=== PATIENT | male | born 1950 | race Caucasian/White ===

== ENCOUNTER 2022-03-16 11:14 | Inpatient (IN) | payer MEDICAID, OTHER ==
[~2022-03-16] VITALS: Ht 165.1 cm; Wt 54.4 kg
[2022-03-16] MEDS: MORPHINE SULFATE 2 MG/ML CPJ (NOT FOR IM USE) IV ONE (11:45)
[2022-03-16 12:08] LABS: MEAN CORPUSCULAR HEMOGLOBIN 31.6 pg (28.0-32.0); MEAN PLATELET VOLUME 8.7 fl (7.4-10.4); PLATELET 296 x1000/uL (130-400); RED BLOOD CELL COUNT 1.98 mill/uL (4.7-6.1); RED CELL DISTRIBUTION WIDTH 32.9 % (11.6-14.6)
[2022-03-16 12:18] LABS: CHLORIDE 102 mEq/L (98-107); HEMATOCRIT. 18.6 % (42.0-52.0); HEMOGLOBIN. 6.3 g/dL (14.0-18.0)
[2022-03-16 12:22] LABS: INR 1.6; PROTHROMBIN TIME 16.3 sec (9.6-11.0)
[2022-03-16 12:29] LABS: ETHANOL BLOOD < 10 mg/dL
[2022-03-16 12:54] LABS: PLATELET ESTIMATE NORMAL
[2022-03-16] MEDS ORDERED: ALBUTEROL (0.083%) 2.5MG/3ML NEB HHN PRN (16:00)
[2022-03-16] MEDS ORDERED: IPRATROPIUM BROMIDE (0.02%) 0.5MG/2.5ML NEB HHN PRN (16:00)
[2022-03-16] MEDS ORDERED: ONDANSETRON HCL 4MG/2ML INJ IV PRN (16:00)
[2022-03-16] MEDS ORDERED: LORAZEPAM 0.5MG TABLET PO PRN (16:00)
[2022-03-16] MEDS ORDERED: NALOXONE HCL 0.4MG/ML VIAL IV PRN (16:00)
[2022-03-16] MEDS ORDERED: DOCUSATE SODIUM 100MG CAPSULE PO PRN (16:00)
[2022-03-16] MEDS ORDERED: HYDROCODONE/ACETAMINOPHEN 5/325MG TABLET PO PRN (16:00)
[2022-03-16] MEDS ORDERED: ACETAMINOPHEN 325MG TABLET PO PRN ×2 (16:00)
[2022-03-16] MEDS ORDERED: CLONIDINE 0.1MG TABLET PO PRN (16:00)
[2022-03-16] MEDS ORDERED: IPRATROPIUM/ALBUTEROL 0.5-3(2.5)MG/3ML NEB HHN PRN (16:00)
[2022-03-16] MEDS ORDERED: MORPHINE SULFATE 2 MG/ML CPJ (NOT FOR IM USE) IV PRN (16:00)
[2022-03-16 16:04] VITALS: BP 115/68
== END 2022-03-16 17:30 | disposition left against medical advice (07) | DRG 663 ==
LOC: ER 11:14 → 7EST 13:46 → ENRESERV 14:55 → 7EST 15:58
PROVIDERS: ADMIT Internal Medicine; ATTEND Internal Medicine
DX: D64.9 Anemia, unspecified (principal); E78.00 Pure hypercholesterolemia, unspecified; R07.89 Other chest pain; I10 Essential (primary) hypertension; I45.10 Unspecified right bundle-branch block; Z53.29 Procedure and treatment not carried out because of patient's decision for other reasons; Z85.038 Personal history of other malignant neoplasm of large intestine; Z85.05 Personal history of malignant neoplasm of liver; Z79.82 Long term (current) use of aspirin; W18.30XA Fall on same level, unspecified, initial encounter; Y93.89 Activity, other specified; Y92.89 Other specified places as the place of occurrence of the external cause; Y99.9 Unspecified external cause status
CPT/HCPCS: 36415; 71045; 80053; 80320; 84484; 85025; 86850; 86900; 86920; 93005; 99291; J2270; G0480

== ENCOUNTER 2022-04-12 09:40 | Inpatient (IN) | payer OTHER ==
[~2022-04-12] VITALS: Ht 165.1 cm; Wt 68.1 kg
[2022-04-12] MEDS ORDERED: MORPHINE SULFATE 4 MG/ML CPJ (NOT FOR IM USE) IV STA (10:11)
[2022-04-12] MEDS ORDERED: ONDANSETRON HCL 4MG/2ML INJ IV STA (10:11)
[2022-04-12] MEDS ORDERED: FAMOTIDINE 20MG/2ML VIAL IV STA (10:11)
[2022-04-12 11:18] LABS: HEMATOCRIT. 23.3 % (42.0-52.0); HEMOGLOBIN. 7.4 g/dL (14.0-18.0); MEAN CORPUSCULAR HEMOGLOBIN 28.8 pg (28.0-32.0); MEAN CORPUSCULAR VOLUME 90.5 fL (80.0-94.0); PLATELET 382 x1000/uL (130-400); RED BLOOD CELL COUNT 2.58 mill/uL (4.7-6.1); RED CELL DISTRIBUTION WIDTH 23.9 % (11.6-14.6)
[2022-04-12 11:41] LABS: PROTHROMBIN TIME 62.4 sec (9.6-11.0)
[2022-04-12 11:46] LABS: CHLORIDE 100 mEq/L (98-107)
[2022-04-12 12:02] LABS: INR 6.5
[2022-04-12 12:27] LABS: NUCLEATED RED BLOOD CELLS 1 /100 WBC; PLATELET ESTIMATE NORMAL
[2022-04-12] MEDS ORDERED: FAMOTIDINE 20MG/2ML VIAL IV NR (13:15)
[2022-04-12] MEDS ORDERED: ONDANSETRON HCL 4MG/2ML INJ IV NR (13:15)
[2022-04-12] MEDS ORDERED: MORPHINE SULFATE 4 MG/ML CPJ (NOT FOR IM USE) IV NR (13:15)
[2022-04-12 19:20] VITALS: BP 103/52
[2022-04-12 20:00] VITALS: BP 93/60
[2022-04-12] MEDS ORDERED: HYDROCODONE/ACETAMINOPHEN 10/325MG TABLET PO PRN (23:15)
[2022-04-12] MEDS ORDERED: ONDANSETRON HCL 4MG/2ML INJ IV PRN (23:15)
[2022-04-12] MEDS ORDERED: NALOXONE HCL 0.4MG/ML VIAL IV PRN (23:45)
[2022-04-13] VITALS (27 sets, daily range): BP systolic 90–109; BP diastolic 53–72
[2022-04-13 06:41] LABS: MEAN CORPUSCULAR HEMOGLOBIN 29.2 pg (28.0-32.0); MEAN CORPUSCULAR VOLUME 91.2 fL (80.0-94.0); PLATELET 265 x1000/uL (130-400); RED BLOOD CELL COUNT 2.02 mill/uL (4.7-6.1); RED CELL DISTRIBUTION WIDTH 24.3 % (11.6-14.6)
[2022-04-13 07:05] LABS: HEMATOCRIT. 18.4 % (42.0-52.0); HEMOGLOBIN. 5.9 g/dL (14.0-18.0)
[2022-04-13 07:37] LABS: CHLORIDE 101 mEq/L (98-107)
[2022-04-13] MEDS ORDERED: PANTOPRAZOLE 40MG DR TABLET PO SCH (09:00)
[2022-04-13] MEDS ORDERED: MORPHINE SULFATE 2 MG/ML CPJ (NOT FOR IM USE) IV PRN (10:30)
[2022-04-13 11:56] LABS: CLARITY URINE CLOUDY (CLEAR); COLOR URINE DARK YELLOW (YELLOW); KETONES URINE NEGATIVE (NEGATIVE); LEUKOCYTE ESTERASE URINE 1+ (NEGATIVE); NITRITE URINE POSITIVE (NEGATIVE); OCCULT BLOOD URINE NEGATIVE (NEGATIVE); PROTEIN URINE TRACE (NEGATIVE); UROBILINOGEN URINE 0.2 E.U./dL (0.2-1.0)
[2022-04-13] MEDS: PHYTONADIONE 10MG/ML AMP SUBCUT SCH (12:32)
[2022-04-13] MEDS: OCTREOTIDE 1,000 MCG in SODIUM CHLORIDE 0.9% 98 ML IV SCH (14:40)
[2022-04-13 20:06] LABS: PLATELET ESTIMATE NORMAL
[2022-04-13 20:33] LABS: FERRITIN 99 ng/mL (22-322)
[2022-04-13 20:44] LABS: VITAMIN B12 SERUM >2000 pg/mL pg/mL (211-911)
[2022-04-13] MEDS: PANTOPRAZOLE SODIUM 40 MG/VIAL IV SCH (20:54)
[2022-04-13] MEDS ORDERED: PIPERACILLIN/TAZOBACTAM 3.375 G in DEXTROSE 5% WATER 50 ML IV SCH (22:00)
[2022-04-14] VITALS (11 sets, daily range): BP systolic 92–117; BP diastolic 53–75
[2022-04-14 05:37] LABS: HEMATOCRIT. 24.2 % (42.0-52.0); MEAN CORPUSCULAR HEMOGLOBIN 30.5 pg (28.0-32.0); MEAN CORPUSCULAR VOLUME 92.2 fL (80.0-94.0); MEAN PLATELET VOLUME 8.6 fl (7.4-10.4); PLATELET 208 x1000/uL (130-400); RED BLOOD CELL COUNT 2.63 mill/uL (4.7-6.1); RED CELL DISTRIBUTION WIDTH 18.1 % (11.6-14.6)
[2022-04-14 05:47] LABS: INR 1.5; PROTHROMBIN TIME 15.6 sec (9.6-11.0)
[2022-04-14 06:01] LABS: CHLORIDE 101 mEq/L (98-107)
[2022-04-14] MEDS: PIPERACILLIN/TAZOBACTAM 3.375 G in DEXTROSE 5% WATER 50 ML IV SCH ×3 (06:28→22:57)
[2022-04-14 06:29] LABS: HEPATITIS B SURFACE ANTIGEN NEGATIVE
[2022-04-14 07:23] LABS: NUCLEATED RED BLOOD CELLS 1 /100 WBC
[2022-04-14 07:24] LABS: PLATELET ESTIMATE NORMAL
[2022-04-14] MEDS: PANTOPRAZOLE SODIUM 40 MG/VIAL IV SCH ×2 (08:47→20:13)
[2022-04-14] MEDS: PHYTONADIONE 10MG/ML AMP SUBCUT SCH (13:31)
[2022-04-14] MEDS: OCTREOTIDE 1,000 MCG in SODIUM CHLORIDE 0.9% 98 ML IV SCH (13:31)
[2022-04-14] MEDS ORDERED: NALOXONE HCL 0.4MG/ML VIAL IV PRN (16:30)
[2022-04-15] VITALS (11 sets, daily range): BP systolic 96–121; BP diastolic 54–74
[2022-04-15 07:10] LABS: HEMATOCRIT. 25.5 % (42.0-52.0); HEMOGLOBIN. 8.6 g/dL (14.0-18.0); MEAN CORPUSCULAR HEMOGLOBIN 30.6 pg (28.0-32.0); MEAN CORPUSCULAR VOLUME 91.2 fL (80.0-94.0); MEAN PLATELET VOLUME 8.1 fl (7.4-10.4); PLATELET 184 x1000/uL (130-400); RED CELL DISTRIBUTION WIDTH 17.6 % (11.6-14.6)
[2022-04-15 07:50] LABS: CHLORIDE 100 mEq/L (98-107)
[2022-04-15] MEDS: PANTOPRAZOLE SODIUM 40 MG/VIAL IV SCH ×2 (09:10→20:49)
[2022-04-15] MEDS: PIPERACILLIN/TAZOBACTAM 3.375 G in DEXTROSE 5% WATER 50 ML IV SCH ×3 (09:21→22:46)
[2022-04-15] MEDS: OCTREOTIDE 1,000 MCG in SODIUM CHLORIDE 0.9% 98 ML IV SCH (09:36)
[2022-04-15 10:28] LABS: NUCLEATED RED BLOOD CELLS 1 /100 WBC
[2022-04-15 10:29] LABS: PLATELET ESTIMATE NORMAL
[2022-04-15] MEDS: PHYTONADIONE 10MG/ML AMP SUBCUT SCH (11:29)
[2022-04-16] VITALS: BP 107/57
[2022-04-16 00:23] LABS: HEMOGLOBIN 7.9 g/dL (14.0-18.0)
[2022-04-16 04:00] VITALS: BP 102/56
[2022-04-16] MEDS: PIPERACILLIN/TAZOBACTAM 3.375 G in DEXTROSE 5% WATER 50 ML IV SCH ×2 (06:37→13:19)
[2022-04-16 07:21] LABS: INR 1.3; PROTHROMBIN TIME 13.5 sec (9.6-11.0)
[2022-04-16 07:28] LABS: HEMATOCRIT. 23.3 % (42.0-52.0); MEAN CORPUSCULAR HEMOGLOBIN 31.2 pg (28.0-32.0); MEAN PLATELET VOLUME 8.2 fl (7.4-10.4); PLATELET 163 x1000/uL (130-400); RED BLOOD CELL COUNT 2.56 mill/uL (4.7-6.1); RED CELL DISTRIBUTION WIDTH 18.5 % (11.6-14.6)
[2022-04-16 08:00] VITALS: BP 95/54
[2022-04-16 08:03] LABS: CHLORIDE 100 mEq/L (98-107)
[2022-04-16] MEDS: PANTOPRAZOLE SODIUM 40 MG/VIAL IV SCH (08:44)
[2022-04-16 09:19] LABS: PLATELET ESTIMATE NORMAL
[2022-04-16] MEDS ORDERED: POTASSIUM CHLORIDE 20MEQ TABLET SR PO NR (10:15)
[2022-04-16] MEDS ORDERED: POTASSIUM CHLORIDE 20MEQ/PACKET PO SCH (10:15)
[2022-04-16 12:00] VITALS: BP 91/57
[2022-04-16] MEDS: PHYTONADIONE 10MG/ML AMP SUBCUT SCH (12:00)
[2022-04-16] MEDS: KCL 20MEQ/100ML PREMIX 100 ML IV SCH ×2 (13:27→14:15)
[2022-04-16 16:00] VITALS: BP 110/67
[2022-04-16] MEDS ORDERED: POTASSIUM CHLORIDE 20MEQ/PACKET PO NR (18:15)
[2022-04-16 20:01] LABS: HEPATITIS B SURFACE ANTIGEN NEGATIVE
[2022-04-16 20:03] LABS: HEPATITIS B SURFACE ANTIGEN NEGATIVE
== END 2022-04-16 18:18 | disposition hospice, home (50) | DRG 720 ==
LOC: ER 09:40 → 3WST 16:36 → EDBEDREQ 16:38 → EDBEDREQTM 16:38 → 6EST 04-16 11:47
PROVIDERS: ADMIT Internal Medicine; ATTEND Internal Medicine
PROC: 30233K1 Transfusion of Nonautologous Frozen Plasma into Peripheral Vein, Percutaneous Approach (ICD-10-PCS; principal; 2022-04-13)
PROC: 30233N1 Transfusion of Nonautologous Red Blood Cells into Peripheral Vein, Percutaneous Approach (ICD-10-PCS; 2022-04-13)
DX: A41.9 Sepsis, unspecified organism (principal); D68.9 Coagulation defect, unspecified; C18.9 Malignant neoplasm of colon, unspecified; R16.0 Hepatomegaly, not elsewhere classified; K92.2 Gastrointestinal hemorrhage, unspecified; D64.9 Anemia, unspecified; C78.7 Secondary malignant neoplasm of liver and intrahepatic bile duct; K52.9 Noninfective gastroenteritis and colitis, unspecified; E78.00 Pure hypercholesterolemia, unspecified; I10 Essential (primary) hypertension; Z20.822 Contact with and (suspected) exposure to COVID-19; R74.01 Elevation of levels of liver transaminase levels; K80.20 Calculus of gallbladder without cholecystitis without obstruction; F41.9 Anxiety disorder, unspecified; F32.A Depression, unspecified; I25.2 Old myocardial infarction; Z51.5 Encounter for palliative care; Z79.82 Long term (current) use of aspirin
CPT/HCPCS: 36415; 71045; 74176; 76700; 80048; 80053; 80076; 81003; 82105; 82140; 82378; 82607; 82728; 82746; 83540; 83550; 83735; 84484; 85014; 85018; 85025; 85044; 86705; 86709; 86803; 86850; 86900; 86920; 86927; 87340; 87426; 93005; 99285; C9113; J2270; J2354; J2405; J2543; J3430; J3480; J3490; J7050; J7060; P9016; P9017